=== PATIENT | female | born 1945 | race Caucasian/White ===

== ENCOUNTER 2017-09-22 06:38 | Day surgery (SDC) | payer OTHER ==
[~2017-09-22 06:38] MED LIST: ATENOLOL25 GM; NORVASC5 MG PO; VITAMIN B COMP1 EAC1 PO
== END 2017-09-22 14:20 | disposition home or self-care (01) ==
LOC: CIR.AMB 06:38
DX: M51.36 Other intervertebral disc degeneration, lumbar region (principal); M54.07 Panniculitis affecting regions of neck and back, lumbosacral region